=== PATIENT | female | born 1960 | race Caucasian/White ===

== ENCOUNTER → 2016-12-08 | Outpatient (CLI) | payer BC ==
[~2016-12-08] MED LIST: ACET-763 PO; ALBU8.5H5 IH; DIPH25CA84 PO; DOCU-139 PO; ESTR1PAT91 TOP; IBUP200T53; LEVO75TA57 PO; MELO-267 PO; OMEP-29 PO; ROSU20TA11 PO; SENN8.6T20 PO; SERT-77 PO
[2016-12-08 12:10] LABS: BASOPHILS % (AUTO) 0.2 % (0-2); EOSINOPHILS % (AUTO) 0.2 % (0-4); HCT - HEMATOCRIT 35.3 % (36-46); HGB - HEMOGLOBIN 12.1 GM/DL (12-16); LYMPHOCYTES # (AUTO) 1.8 T/MM3 (1-4.8); LYMPHOCYTES % (AUTO) 30.4 % (23-45); MEAN CORPUSCULAR HGB 30.5 UUG (26-34); MEAN CORPUSCULAR HGB CONC(MCHC 34.3 GM/DL (31-37); MEAN CORPUSCULAR VOLUME 88.9 UM3 (80-100); MEAN PLATELET VOLUME 10.1 UM3 (9.4-12.4); MONOCYTES # (AUTO) 0.3 T/MM3 (0-0.8); MONOCYTES % (AUTO) 4.5 % (0-9.0); NEUTROPHILS #(AUTO)-ABSOLUTE 3.9 T/MM3 (1.8-7.7); NEUTROPHILS % (AUTO) 64.7 % (33-66); RED BLOOD COUNT 3.97 M/MM3 (4.00-5.20)
[2016-12-08 12:50] LABS: THYROID STIM HORMONE-TSH 13.7 MIU/L (0.47-4.68)
== END ==
LOC: LAB 11:41
PROVIDERS: ATTEND Family Medicine
DX: E03.9 Hypothyroidism, unspecified (principal); R53.83 Other fatigue
CPT/HCPCS: 36415; 82947; 84443; 85025

== ENCOUNTER → 2016-12-26 | Outpatient (CLI) | payer BC | LOC: SS 12-25 20:00 | PROVIDERS: ATTEND Family Medicine | DX: G47.33 Obstructive sleep apnea (adult) (pediatric) (principal); G47.34 Idiopathic sleep related nonobstructive alveolar hypoventilation ==